=== PATIENT | female | born 2000 | race Caucasian/White ===

== ENCOUNTER 2022-02-23 20:27 | Emergency (ER) | payer OTHER ==
[2022-02-23] MEDS ORDERED: diphenhydrAMINE 50 MG/ML SDV IVPUSH ONE (20:43)
[2022-02-23] MEDS ORDERED: Famotidine 20 MG/2 ML SDV IVPUSH ONE (20:43)
[2022-02-23] MEDS ORDERED: predniSONE 20 MG Tab PO ONE (20:48)
[2022-02-23] MEDS ORDERED: EPINEPHrine 1 MG/ML SDV IM ONE (21:07)
== END 2022-02-23 22:50 | disposition home or self-care (01) ==
LOC: JD.ED 20:27
DX: T78.40XA Allergy, unspecified, initial encounter (principal); Z88.0 Allergy status to penicillin; Z91.011 Allergy to milk products; Z88.1 Allergy status to other antibiotic agents; Z88.2 Allergy status to sulfonamides; Z91.018 Allergy to other foods
CPT/HCPCS: 96372; 96374; 96375; 99283; J0171; J1200; J3490; J7512